=== PATIENT | female | born 1970 ===

== ENCOUNTER → 2020-12-30 | Outpatient (CLI) | payer OTHER ==
[~2020-12-30] MED LIST: ENEMA; LEVO125T5 PO; METF500T17 PO; MULT-658 PO; OLMESARTAN/HCTZ PO; [UNRECOGNIZED DRUG - OTHER] PO
[2020-12-30 09:51] LABS: MICROSCOPIC NOT IND
[2020-12-30 10:04] LABS: ALBUMIN 3.5 g/dL (3.4-5.0); ANION GAP 8 mmol/L (5-15); CALCIUM 9.4 mg/dL (8.5-10.1); CHLORIDE 104 mmol/L (98-107)
[2020-12-30 10:12] LABS: ALANINE AMINOTRANSFERASE 22 U/L (12-78); ALKALINE PHOSPHATASE 64 U/L (45-117); BILIRUBIN,TOTAL 0.5 mg/dL (0.2-1.0); CREATININE 0.94 mg/dL (0.55-1.02)
[2020-12-30 10:13] LABS: BASOPHILS % (AUTO) 1 % (0-1); EOSINOPHILS % (AUTO) 2 % (1-7); LYMPHOCYTES % (AUTO) 27 % (22-44); MEAN CORPUSCULAR HEMOGLOBIN 28.4 pg (27.0-34.8); MEAN CORPUSCULAR HGB CONC 33.6 g/dL (32.4-35.8); MEAN PLATELET VOLUME 9.7 fL (7.4-10.4); MONOCYTES % (AUTO) 8 % (2-9); NEUTROPHILS % (AUTO) 61 % (42-75); PLATELET COUNT 377 x10^3/uL (130-400); RED BLOOD COUNT 4.44 x10^6/uL (3.82-5.3); RED CELL DISTRIBUTION WIDTH 15.6 % (9.6-15.2)
[2020-12-30 10:14] LABS: MD NO
== END | disposition home or self-care (01) ==
LOC: STAR 08:41
PROVIDERS: ATTEND Obstetrics & Gynecology Gynecology
DX: Z01.818 Encounter for other preprocedural examination (principal); C54.1 Malignant neoplasm of endometrium; N93.9 Abnormal uterine and vaginal bleeding, unspecified; Z20.822 Contact with and (suspected) exposure to COVID-19
CPT/HCPCS: 71046; 80053; 81003; 84702; 85025; 87635; 93005

== ENCOUNTER 2021-01-05 05:33 | Day surgery (SDC) | payer OTHER ==
[~2021-01-05] VITALS: Ht 160 cm; Wt 104.0 kg
[2021-01-05] MEDS ORDERED: CHLORHEXIDINE 15 ML UDC MM ONE (06:30)
[2021-01-05] MEDS ORDERED: LACTATED RINGERS 1,000 ML IV SCH (06:30)
[2021-01-05 06:43] LABS: HCG UR SG 1.022 (1.003-1.030)
[2021-01-05] MEDS ORDERED: BUPIVACAINE/PF 0.25% ONE (07:17)
[2021-01-05] MEDS ORDERED: MANNITOL PMX 20% 500 ML ONE (07:17)
[2021-01-05] MEDS ORDERED: EPINEPHRINE 1 MG/ML, 1ML ONE (07:18)
[2021-01-05] MEDS ORDERED: MIDAZOLAM 1 MG/ML, 2ML ONE (07:32)
[2021-01-05] MEDS ORDERED: FENTANYL PF 250 MCG/5ML ONE (07:33)
[2021-01-05] MEDS ORDERED: PHENYLEPHRINE 10 MG/ML ONE (07:46)
[2021-01-05] MEDS ORDERED: MEPERIDINE/PF 25MG/0.5ML IVPush PRN (08:00)
[2021-01-05] MEDS ORDERED: ONDANSETRON 2MG/ML, 2ML IVPush PRN ×2 (08:00→15:00)
[2021-01-05] MEDS ORDERED: PROMETHAZINE 25 MG/ML, 1ML IVPush PRN (08:00)
[2021-01-05] MEDS ORDERED: METHOCARBAMOL 1,000 MG in DEXTROSE 5% 100 ML IV PRN (08:00)
[2021-01-05] MEDS ORDERED: PROMETHAZINE 25 MG SUPP PR PRN (08:00)
[2021-01-05] MEDS ORDERED: HYDROmorphone 1 MG/ML, 1ML INJ IVPush PRN (08:00)
[2021-01-05] MEDS ORDERED: LORazepam 2 MG/ML, 1ML IVPush PRN (08:00)
[2021-01-05] MEDS ORDERED: ACETAMINOPHEN 325 MG TABLET PO PRN (08:00)
[2021-01-05] MEDS ORDERED: HEPARIN 1,000 UNITS/ML, 10ML ONE (08:27)
[2021-01-05] MEDS ORDERED: FENTANYL PF 100 MCG/2ML ONE ×3 (10:20→11:57)
[2021-01-05] MEDS ORDERED: DEXAMETHASONE 4 MG/ML, 1ML ONE (10:34)
[2021-01-05] MEDS ORDERED: ONDANSETRON 2MG/ML, 2ML ONE ×2 (10:34→14:49)
[2021-01-05] MEDS ORDERED: NEOSTIGMINE 1 MG/ML, 10ML ONE (10:34)
[2021-01-05] MEDS ORDERED: PROPOFOL 10 MG/ML, 20ML ONE (10:34)
[2021-01-05] MEDS ORDERED: CEFAZOLIN 1,000 MG ONE (10:34)
[2021-01-05] MEDS ORDERED: SUCCINYLCHOLINE 20 MG/ML, 10ML ONE (10:34)
[2021-01-05] MEDS ORDERED: GLYCOPYRROLATE 0.2MG/1ML, 5ML ONE (10:34)
[2021-01-05] MEDS ORDERED: ROCURONIUM 10MG/ML,5ML ONE (10:34)
[2021-01-05] MEDS: FENTANYL PF 100 MCG/2ML IV PRN ×4 (11:20→12:10)
[2021-01-05] MEDS ORDERED: OXYcodone 5 MG/5 ML ORAL.SOL UDC ONE ×2 (11:37→11:58)
[2021-01-05] MEDS: OXYcodone 5 MG/5 ML ORAL.SOL UDC PO PRN ×2 (11:40→12:00)
[2021-01-05] MEDS ORDERED: KETOROLAC 30 MG/1 ML ONE (12:47)
[2021-01-05] MEDS ORDERED: KETOROLAC 30 MG/1 ML IVPush ONE (13:00)
[2021-01-05] MEDS ORDERED: morphine SULFATE 10 MG/ML, 1ML ONE (14:49)
[2021-01-05] MEDS ORDERED: morphine SULFATE 10 MG/ML, 1ML IVPush PRN (15:00)
== END 2021-01-05 15:45 | disposition home or self-care (01) ==
LOC: OUT 05:33
PROVIDERS: ATTEND Obstetrics & Gynecology Gynecology
DX: C55 Malignant neoplasm of uterus, part unspecified (principal); N93.8 Other specified abnormal uterine and vaginal bleeding; N72 Inflammatory disease of cervix uteri; D25.9 Leiomyoma of uterus, unspecified; D26.9 Other benign neoplasm of uterus, unspecified; N83.11 Corpus luteum cyst of right ovary; E11.9 Type 2 diabetes mellitus without complications; I10 Essential (primary) hypertension; E78.00 Pure hypercholesterolemia, unspecified; Z79.84 Long term (current) use of oral hypoglycemic drugs; Z79.890 Hormone replacement therapy; Z79.899 Other long term (current) drug therapy; Z91.040 Latex allergy status; Z91.048 Other nonmedicinal substance allergy status; Z98.51 Tubal ligation status
CPT/HCPCS: 36415; 58573; 81025; 82962; 86850; 86900; 88112; 88305; 88307; J0171; J0690; J1100; J1644; J1885; J2250; J2270; J2370; J2405; J2704; J2710; J3010; S2900; J0330